=== PATIENT | female | born 1945 | race Caucasian/White ===

== ENCOUNTER → 2016-08-21 | Outpatient (CLI) | payer MEDICARE, BC ==
--- NOTE | 2016-08-24 08:52 | CR ---
EXAMINATION: Cervical spine HISTORY: Pain COMPARISON: None TECHNIQUE: Flexion and extension images FINDINGS: There is minimal anterolisthesis of C3 on C4, C4 on C5 and C6 and C7, predominantly with f lexion. Vertebral body heights appear grossly maintained. Bone mineralization appears mildly osteope elver. Marginal osteophytes are noted. Facet degenerative changes are noted. The prevertebral soft tis sues are within normal limits. IMPRESSION: Moderate degenerative changes without acute findings.
== END ==
LOC: MW.DI 14:10
PROVIDERS: ATTEND Neurological Surgery
DX: M54.2 Cervicalgia (principal)
CPT/HCPCS: 72040; 72040-26